=== PATIENT | male | born 1970 | race Caucasian/White ===

== ENCOUNTER 2016-07-19 07:41 | Day surgery (SDC) | payer BC, SELFPAY ==
--- NOTE | ~2016-07-19 | OP ---
Record Of Operation [facility] [address] [place]. [address] NAME: ALEXANDREA TOWNSEND : 70 STATUS : [facility]#: [id number] AGE: 45 ADM/REG DATE : 07/19/16 MR#: [id number] REPORT SERV DATE: 07/20/16 DICTATED BY: EHSAN ANDERSON DATE: 07/20/16 REPORT STATUS : Draft TRANSCRIBED BY: SHANDA DATE: 07/20/16 DATE OF PROCEDURE: 07/19/2016 PREOPERATIVE DIAGNOSIS: Right tonsillar mass. POSTOPERATIVE DIAGNOSIS: Right tonsillar mass. OPERATIVE PROCEDURES PERFORMED: 1. Microscopic direct laryngoscopy. 2. Tonsillectomy. INDICATIONS AND SIGNIFICANT HISTORY: The patient is a 45-year-old male with a significant history of increasing right throat pain and tonsillar mass. Given the suspicion for malignancy, the patient was felt to benefit from microscopic direct laryngoscopy, possible biopsy, and tonsillectomy. OPERATIVE PROCEDURE AND FINDINGS: After informed consent was obtained, the patient was brought to the operating room and placed on the operating table in the supine position. General endotracheal anesthesia was induced by the Anesthesia Service, and Dedo laryngoscope was inserted through the oral cavity through guarded alveolar ridge. There was noted to be a large ex-fix for the right tonsil; however, examination of the left tonsil, posterior pharyngeal wall, supraglottis, glottis, epiglottis, valleculae, and piriform sinuses all was normal. No additional lesions were noted under microscopic exam or endoscopic exam. The Bryan-Mendoza mouth gag was then inserted into the oral cavity and a red rubber catheter in the left naris. A left tonsillectomy was performed uneventfully with the Bovie cautery. Attention was turned toward the right tonsil where the right tonsillar mass was grasped, retracted toward midline, and dissected free of its tonsillar fossa using Bovie cautery. There was noted to be extension of the mass into the lateral pharyngeal area. Specimens were sent separately, right tonsil and left tonsil were specimens. The patient was then turned back toward anesthesia and aroused from anesthesia in a satisfactory condition. COMPLICATIONS: None. ESTIMATED BLOOD LOSS: Less than 5 mL. IV FLUIDS: Per Anesthesia. FINDINGS: Asymmetric right tonsil mass, strongly suspicious for malignancy. DLKwadwo/SHANDA Ehsan Anderson M.D. Record Of Operation [address] [address] NAME: ALEXANDREA TOWNSEND : [birth year] STATUS : [facility] PAT#: [id number] AGE: 45 ADM/REG DATE : 07/19/16 MR#: [id number] REPORT SERV DATE: 07/20/16 DICTATED BY: EHSAN ANDERSON DATE: 07/20/16 REPORT STATUS : Draft TRANSCRIBED BY: SHANDA DATE: 07/20/16 / [id number] CC: Evette Meneses D.O.
[~2016-07-19 07:41] MED LIST: ZANTAC150 MG PO
[2016-08-03] MEDS ORDERED: HYDROCODONE (13:43)
== END 2016-07-19 14:37 | disposition home or self-care (01) ==
LOC: SDC 07:41
PROVIDERS: Otolaryngology
PROC: 0CTPXZZ Resection of Tonsils, External Approach (ICD-10-PCS; principal; 2016-07-19 09:45)
DX: C09.9 Malignant neoplasm of tonsil, unspecified (principal); K21.9 Gastro-esophageal reflux disease without esophagitis; Z88.6 Allergy status to analgesic agent; Z88.2 Allergy status to sulfonamides; Z79.899 Other long term (current) drug therapy; Z98.890 Other specified postprocedural states
CPT/HCPCS: 80048; 85025; 85610; 85730; 88304; 88341; 88342; A9270-GY; J2250; J2405; J2710; J3010

== ENCOUNTER 2016-08-05 10:18 | Day surgery (SDC) | payer BC ==
--- NOTE | ~2016-08-05 | EGD ---
EGD REPORT [facility] [address] [address] NAME: CARLOS BECERRA : 70 STATUS : [facility]#: [id number] AGE: 45 ADM/REG DATE : 08/05/16 MR#: [id number] REPORT SERV DATE: 08/05/16 DICTATED BY: ROSALINDA GRIGSBY DATE: 08/05/16 REPORT STATUS : Draft TRANSCRIBED BY: [facility] DATE: 08/05/16 [facility] Center Patient Name: Carlos Becerra Date of : 1970 Attending MD: ROSALINDA GRIGSBY, Procedure Date No Time: 08/05/2016 Procedure: Upper EUS Indications: Abnormal abdominal PET scan. Uptake in distal esophagus Referring MD: Ryan DOWNEY Medicines: Monitored Anesthesia Care Complications: No immediate complications. Estimated blood loss: None. Procedure: Pre-Anesthesia Assessment: - ASA Grade Assessment: II - A patient with mild systemic disease. After obtaining informed consent, the endoscope was passed under direct vision. Throughout the procedure, the patient's blood pressure, pulse, and oxygen saturations were monitored continuously. The Endoscope was introduced through the mouth, and advanced to the second part of duodenum. The GIF [id number] [id number] was introduced through the mouth, and advanced to the second part of duodenum. Findings: Endoscopic Finding : LA Grade B (one or more mucosal breaks greater than 5 mm, not extending between the tops of two mucosal folds) esophagitis with no bleeding was found in the lower third of the esophagus. Biopsies were taken with a cold forceps for histology. Verification of patient identification for the specimen was done. Estimated blood loss was minimal. Patchy moderate inflammation characterized by erosions was found in the entire examined stomach. Biopsies were taken with a cold forceps for histology. Verification of patient identification for the specimen was done. Estimated blood loss was minimal. The cardia and gastric fundus were normal on retroflexion. Patchy mild inflammation characterized by erythema was found in the duodenal bulb. The examined duodenum was endoscopically normal. Endosonographic Finding : The esophagus, stomach and duodenum and adjacent structures were visualized endosonographically. There was no sign of significant endosonographic abnormality in the entire pancreas. The pancreas was well visualized, no pathologic lymphadenopathy, no masses, no calcifications, the pancreatic duct was well visualized from ampulla to tail, the pancreatic duct was regular in EGD REPORT [place] [address] [place]. [address] NAME: CARLOS BECERRA : 70 STATUS : [facility] PAT#: [id number] AGE: 45 ADM/REG DATE : 08/05/16 MR#: [id number] REPORT SERV DATE: 08/05/16 DICTATED BY: ROSALINDA GRIGSBY DATE: 08/05/16 REPORT STATUS : Draft TRANSCRIBED BY: [employer] DATE: 08/05/16 contour. There was no sign of significant endosonographic abnormality in the common bile duct. An unremarkable gallbladder was identified. No lymphadenopathy seen. There was no sign of significant endosonographic abnormality in the examined duodenum. Endosonographic images of the stomach were unremarkable. There was no sign of significant endosonographic abnormality in the esophagus. Impression: - LA Grade B reflux esophagitis. Biopsied. This is likely the cause of the PET abnormality - Gastritis. Biopsied. - Duodenitis. - Normal examined duodenum. - There was no sign of significant pathology in the entire pancreas. - There was no sign of significant pathology in the common bile duct. - There was no sign of significant pathology in the examined duodenum. - Endosonographic images of the stomach were unremarkable. - There was no sign of significant pathology in the esophagus. Recommendation: - Return to previous diet. - Use Prilosec (omeprazole) 40 mg PO daily. - Continue present medications. - Await path results. Procedure Code(s): --- Professional --- 41023, Esophagogastroduodenoscopy, flexible, transoral; with endoscopic ultrasound examination, including the esophagus, stomach, and either the duodenum or a surgically altered stomach where the jejunum is examined distal to the anastomosis Diagnosis Code(s): --- Professional --- K21.0, Gastro-esophageal reflux disease with esophagitis K29.70, Gastritis, unspecified, without bleeding K29.80, Duodenitis without bleeding R93.5, Abnormal findings on diagnostic imaging of other abdominal regions, including retroperitoneum CPT copyright 2013 [employer]. All rights reserved. EGD REPORT [facility] [address] [place] [address] [place]. [address] NAME: CARLOS BECERRA : 70 STATUS : [facility] PAT#: [id number] AGE: 45 ADM/REG DATE : 08/05/16 MR#: [id number] REPORT SERV DATE: 08/05/16 DICTATED BY: ROSALINDA GRIGSBY DATE: 08/05/16 REPORT STATUS : Draft TRANSCRIBED BY: [employer] DATE: 08/05/16 The codes documented in this report are preliminary and upon burner operator review may be revised to meet current compliance requirements. ROSALINDA GRIGSBY, 08/05/2016 12:31 PM Number of Addenda: 0 Note Initiated On: 08/05/2016 12:06 PM Scope Withdrawal Time 0 hours 0 minutes 0 seconds [address] [place] [address]
--- NOTE | ~2016-08-05 | EGD ---
EGD REPORT [facility] [address] [address] NAME: CARLOS BECERRA : 70 STATUS : [facility]#: [id number] AGE: 45 ADM/REG DATE : 08/05/16 MR#: [id number] REPORT SERV DATE: 08/05/16 DICTATED BY: ROSALINDA GRIGSBY DATE: 08/05/16 REPORT STATUS : Draft TRANSCRIBED BY: [facility] DATE: 08/05/16 Endoscopy Center Patient Name: Carlos Becerra Date of : 1970 Attending MD: ROSALINDA GRIGSBY, Procedure Date No Time: 08/05/2016 Procedure: Upper EUS Indications: Abnormal abdominal PET scan. Uptake in distal esophagus Referring MD: Ryan DOWNEY Medicines: Monitored Anesthesia Care Complications: No immediate complications. Estimated blood loss: None. Procedure: Pre-Anesthesia Assessment: - ASA Grade Assessment: II - A patient with mild systemic disease. After obtaining informed consent, the endoscope was passed under direct vision. Throughout the procedure, the patient's blood pressure, pulse, and oxygen saturations were monitored continuously. The Endoscope was introduced through the mouth, and advanced to the second part of duodenum. The GIF H190 [id number] was introduced through the mouth, and advanced to the second part of duodenum. Findings: Endoscopic Finding : LA Grade B (one or more mucosal breaks greater than 5 mm, not extending between the tops of two mucosal folds) esophagitis with no bleeding was found in the lower third of the esophagus. Biopsies were taken with a cold forceps for histology. Verification of patient identification for the specimen was done. Estimated blood loss was minimal. Patchy moderate inflammation characterized by erosions was found in the entire examined stomach. Biopsies were taken with a cold forceps for histology. Verification of patient identification for the specimen was done. Estimated blood loss was minimal. The cardia and gastric fundus were normal on retroflexion. Patchy mild inflammation characterized by erythema was found in the duodenal bulb. The examined duodenum was endoscopically normal. Endosonographic Finding : The esophagus, stomach and duodenum and adjacent structures were visualized endosonographically. There was no sign of significant endosonographic abnormality in the entire pancreas. The pancreas was well visualized, no pathologic lymphadenopathy, no masses, no calcifications, the pancreatic duct was well visualized from ampulla to tail, the pancreatic duct was regular in EGD REPORT [place] [address] [place]. [address] NAME: CARLOS BECERRA : 70 STATUS : [facility] [place] PAT#: [id number] AGE: 45 ADM/REG DATE : 08/05/16 MR#: [id number] REPORT SERV DATE: 08/05/16 DICTATED BY: ROSALINDA GRIGSBY DATE: 08/05/16 REPORT STATUS : Draft TRANSCRIBED BY: [employer] DATE: 08/05/16 contour. There was no sign of significant endosonographic abnormality in the common bile duct. An unremarkable gallbladder was identified. No lymphadenopathy seen. There was no sign of significant endosonographic abnormality in the examined duodenum. Endosonographic images of the stomach were unremarkable. There was no sign of significant endosonographic abnormality in the esophagus. Impression: - LA Grade B reflux esophagitis. Biopsied. This is likely the cause of the PET abnormality - Gastritis. Biopsied. - Duodenitis. - Normal examined duodenum. - There was no sign of significant pathology in the entire pancreas. - There was no sign of significant pathology in the common bile duct. - There was no sign of significant pathology in the examined duodenum. - Endosonographic images of the stomach were unremarkable. - There was no sign of significant pathology in the esophagus. Recommendation: - Return to previous diet. - Use Prilosec (omeprazole) 40 mg PO daily. - Continue present medications. - Await path results. Procedure Code(s): --- Professional --- 82723, Esophagogastroduodenoscopy, flexible, transoral; with endoscopic ultrasound examination, including the esophagus, stomach, and either the duodenum or a surgically altered stomach where the jejunum is examined distal to the anastomosis Diagnosis Code(s): --- Professional --- K21.0, Gastro-esophageal reflux disease with esophagitis K29.70, Gastritis, unspecified, without bleeding K29.80, Duodenitis without bleeding R93.5, Abnormal findings on diagnostic imaging of other abdominal regions, including retroperitoneum CPT copyright 2013 [employer]. All rights reserved. EGD REPORT [facility] [address] [place] [address] [place]. [address] NAME: CARLOS BECERRA : 70 STATUS : [facility] [place] PAT#: [id number] AGE: 45 ADM/REG DATE : 08/05/16 MR#: [id number] REPORT SERV DATE: 08/05/16 DICTATED BY: ROSALINDA GRIGSBY DATE: 08/05/16 REPORT STATUS : Draft TRANSCRIBED BY: [employer] DATE: 08/05/16 The codes documented in this report are preliminary and upon nutrition counselor review may be revised to meet current compliance requirements. ROSALINDA GRIGSBY, 08/05/2016 12:31 PM Number of Addenda: 0 Note Initiated On: 08/05/2016 12:06 PM Scope Withdrawal Time 0 hours 0 minutes 0 seconds [address] [place] [address]
[~2016-08-05 10:18] MED LIST changes: +HYDROCODONE
== END 2016-08-05 23:59 | disposition home health service (06) ==
LOC: DMU 10:18
PROVIDERS: Internal Medicine Gastroenterology
PROC: BD41ZZZ Ultrasonography of Esophagus (ICD-10-PCS; 2016-08-05)
PROC: 0DJ08ZZ Inspection of Upper Intestinal Tract, Via Natural or Artificial Opening Endoscopic (ICD-10-PCS; principal; 2016-08-05 17:30)
DX: K29.50 Unspecified chronic gastritis without bleeding (principal); F41.9 Anxiety disorder, unspecified; F32.9 Major depressive disorder, single episode, unspecified; K21.0 Gastro-esophageal reflux disease with esophagitis; K29.80 Duodenitis without bleeding; Z88.2 Allergy status to sulfonamides; Z88.8 Allergy status to other drugs, medicaments and biological substances; Z87.891 Personal history of nicotine dependence; Z98.890 Other specified postprocedural states
CPT/HCPCS: 88305; C1725